=== PATIENT | male | born 1995 | race American Indian/Alaskan Native ===

== ENCOUNTER 2022-05-13 20:50 | Emergency (ER) | payer OTHER ==
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
[2022-05-14 04:36] VITALS: BP 136/74
== END 2022-05-14 04:37 | disposition home or self-care (01) ==
LOC: ED 20:50
DX: S16.1XXA Strain of muscle, fascia and tendon at neck level, initial encounter (principal); X58.XXXA Exposure to other specified factors, initial encounter; Y93.89 Activity, other specified; Y92.89 Other specified places as the place of occurrence of the external cause; Y99.8 Other external cause status
CPT/HCPCS: 72040; 99283